=== PATIENT | male | born 2000 | race Caucasian/White ===

== ENCOUNTER 2018-07-11 03:15 | Emergency (ER) | payer OTHER ==
[~2018-07-11] VITALS: Ht 185.4 cm; Wt 77.1 kg
[2018-07-11 03:32] LABS: URINE BLOOD NEGATIVE (Negative); URINE CLARITY CLEAR; URINE COLOR YELLOW; URINE GLUCOSE-RANDOM NEGATIVE (Negative); URINE KETONES TRACE (Negative); URINE LEUKOCYTES-REFLEX NEGATIVE (Negative); URINE NITRITE-REFLEX NEGATIVE (Negative); URINE PROTEIN 2+ (Negative); URINE SPECIFIC GRAVITY 1.025 (1.005-1.030); URINE UROBILINOGEN 0.2 E.U./dl (0.2-1.0)
[2018-07-11] MEDS ORDERED: AMOXICILLIN 50500 MG (03:35)
[2018-07-11 03:40] LABS: AMP/METHAMP Negative (Negative); BARBITURATES Negative (Negative); BENZODIAZEPINES Negative (Negative); COCAINE Negative (Negative); METHADONE Negative (Negative); OPIATES Negative (Negative); PCP Negative (Negative); THC Negative (Negative)
[2018-07-11 03:48] LABS: ABSOLUTE BASOPHILS 0.1 thou/uL (0.0-0.2); ABSOLUTE MONOCYTES 0.9 thou/uL (0.0-1.2); ABSOLUTE NEUTROPHILS 12.7 thou/uL (1.6-8.1); BASOPHILS 0.5 %; EOSINOPHILS 0.2 %; HEMATOCRIT 45.4 % (42.0-52.0); HEMOGLOBIN 15.8 gm/dL (14.0-18.0); LYMPHOCYTES 12.9 %; MCH 30.6 pg (26.0-34.0); MCHC 34.9 g/dL (28.0-37.0); MCV 87.7 fL (80.0-100.0); MONOCYTES 5.6 %; MPV 7.3 fl. (7.2-11.1); NUCLEATED RBCS 0 /100WBC; PLATELET COUNT* 325 thou/uL (150-400); POLYS 80.8 %; RBC 5.17 mil/uL (4.50-6.00); WBC 15.7 thou/uL (4.0-11.0)
[2018-07-11 04:03] LABS: URINE BILIRUBIN 1+ (Negative)
[2018-07-11 04:04] LABS: ICTOTEST (BILI CONFIRMATORY) Negative (Negative)
[2018-07-11 04:08] LABS: CALCIUM 9.8 mg/dL (8.5-10.1); CREATININE 1.2 mg/dL (0.6-1.3); POTASSIUM 3.4 mmol/L (3.5-5.1)
[2018-07-11 04:13] LABS: ALBUMIN 4.6 g/dL (3.4-5.0); TOTAL BILIRUBIN 0.5 mg/dL (<0.1-1.0); TOTAL PROTEIN 7.9 g/dL (6.4-8.2)
[2018-07-11 05:39] LABS: HYALINE CASTS 4-10 Moderate /LPF (None Seen); SQUAMOUS >10 Many /LPF (0-3); URINE WBC-REFLEX 0-5 Rare /HPF (0-5)
[2018-07-11 05:40] LABS: BACTERIA-REFLEX 1-9 Few /HPF (None Seen); CRYSTALS None Seen /LPF (None Seen); URINE RBC 0-2 Rare /HPF (0-2)
[2018-07-11 09:50] VITALS: BP 106/52
--- NOTE | 2018-07-11 16:25 | EKG ---
[place] [address] ELECTROCARDIOGRAM REPORT Name: NAMAN LUIS [id number] Admission: 07/11/18 Attend Phys: Discharge: 07/11/18 Date of : [birth year] Report #: [id number] THIS REPORT FOR: //name// [facility] ED Test Date: 2018-07-11 Test Time: 03:42:45 Pat Name: NAMAN LUIS Department: Room: Gender: M Backhoe Operator: SHIVA : 2000 Requested By: Carina Zamudio Order Number: [id number] MD: John West Measurements Intervals [place] Rate: 110 P: 46 MT: 174 QRS: 84 QRSD: 87 T: 39 QT: 318 QTc: 431 Interpretive Statements Sinus tachycardia No previous ECG available for comparison Electronically Signed On 07-11-2018 16:24:51 [employer] by John West [email or web address] <ELECTRONICALLY SIGNED> By: John West MD, [facility] 07/11/18 1624 [id number] John West MD, FACC /EPI
== END 2018-07-11 09:50 | disposition home or self-care (01) ==
LOC: M.ERS 03:15
PROVIDERS: Personal Emergency Response Attendant
DX: F32.9 Major depressive disorder, single episode, unspecified (principal); R41.82 Altered mental status, unspecified; R45.851 Suicidal ideations; F19.10 Other psychoactive substance abuse, uncomplicated; F17.210 Nicotine dependence, cigarettes, uncomplicated